=== PATIENT | male | born 1990 | race American Indian/Alaskan Native ===

== ENCOUNTER 2016-10-26 00:08 | Emergency (ER) | payer SELFPAY ==
[2016-10-26 08:31] VITALS: BP 137/92
--- NOTE | 2016-10-26 10:46 | Emergency Department Report ---
Chief Complaint: Upper Respiratory Infection Stated Complaint: CARLENE Time Seen by Provider: 10/26/16 09:53 - HPI History of Present Illness: 26-year-old female presented today complaining of nonproductive cough 3 days. At this time patient denies any medical complaints. Denies pain. Denies fever , chills, nausea, vomiting, cold and cough symptoms, chest pain, shortness of breath, abdominal pain. - ROS Review of Systems: Constitutional: Denies chills, fever, diaphoresis, malaise, weakness Eyes: Denies eye pain ENT: Denies ear pain, throat pain, congestion Respiratory: Denies cough, shortness of breath, wheezing Cardiovascular: Denies chest pain, palpitations Endocrine: No symptoms reported GI: Denies abdominal pain, nausea, vomiting, diarrhea Musculoskeletal: Denies back pain, joint swelling, arthralgia, myalgia Skin: Denies rash, lesions, pruritus Neurological: Denies headache, weakness, numbness, paresthesias - Exam Vital Signs: Vital Signs 10/26/16 10/26/16 01:06 08:30 Temperature 98.5 F Pulse Rate 81 81 Respiratory 18 18 Rate Blood Pressure 137/93 Blood Pressure 137/92 [Left] O2 Sat by Pulse 100 100 Oximetry Physical Exam: GENERAL: The patient is well-developed and well-nourished. Patient is in NAD. HEAD: Normocephalic. Atraumatic. EYES: PERRL. EARS: External auditory canals and tympanic membranes clear; hearing grossly intact. NOSE: Normal nasal mucosa with no nasal discharge. THROAT: No erythema, swelling or exudates. NECK: Supple, nontender, without lymphadenopathy. CHEST/LUNGS: Clear to auscultation throughout. HEART/CARDIOVASCULAR: Regular rate and rhythm. No murmurs, rubs or gallops. ABDOMEN: Abdomen is soft, nontender. No guarding or rebound tenderness. MSE screening note: Focused history and physical exam performed. Due to findings the following was ordered: ED Medical Decision Making - Lab Data Vital Signs 10/26/16 10/26/16 01:06 08:30 Temperature 98.5 F Pulse Rate 81 81 Respiratory 18 18 Rate Blood Pressure 137/93 Blood Pressure 137/92 [Left] O2 Sat by Pulse 100 100 Oximetry - Medical Decision Making Patient denies any medical complaints. Patient is in no acute distress at this time. He will be discharged home and is encouraged to follow up with a primary care provider. He is encouraged to return to the emergency room for any worsening symptoms. ED Disposition for MSE Clinical Impression: Cough Disposition: DISCHARGED TO HOME OR SELFCARE Is pt being admited?: No Does the pt Need Aspirin: No Condition: Stable Additional Instructions: Follow-up with primary care provider. Referrals: PRIMARY CARE, [Primary Care Provider] - 3-5 Days [facility] [Outside] - 3-5 Days Forms: Work/School Release Form(ED) Time of Disposition: 10:44
== END 2016-10-26 10:50 | disposition home or self-care (01) ==
LOC: ED 00:08
DX: R05 Cough (principal)
CPT/HCPCS: 99281